=== PATIENT | male | born 1995 | race Two or more races ===

== ENCOUNTER 2023-04-21 19:46 | Emergency (ER) | payer OTHER ==
[~2023-04-21] VITALS: Ht 167.6 cm; Wt 72.6 kg
[2023-04-22] MEDS ORDERED: ZITHROMAX500 MG PO (01:58)
== END 2023-04-22 02:24 | disposition home or self-care (01) ==
LOC: ER 19:46
DX: J06.9 Acute upper respiratory infection, unspecified (principal); Z20.822 Contact with and (suspected) exposure to COVID-19